=== PATIENT | male | born 1995 | race Caucasian/White ===

== ENCOUNTER 2016-11-09 00:46 | Emergency (ER) | payer OTHER ==
[2016-11-09 00:54] VITALS: BP 122/79; PULSE 86; TEMP 99.2; BMI 29.1
[2016-11-09] MEDS ORDERED: AMOXICILLIN 500 MG CAPSULE (FP) PO ONE (00:57)
[2016-11-09] MEDS ORDERED: ACETAMINOPHEN 325 MG TABLET (FP) PO ONE (01:01)
--- NOTE | 2016-11-09 01:01 | PDOC ---
History of Present Illness - General Chief Complaint: Sore Throat Stated Complaint: SORE THROAT Time Seen by Provider: 11/09/16 00:52 History Source: Patient Exam Limitations: No Limitations - History of Present Illness Initial Comments: 11/09/16 00:58 This is a 21-year-old male who comes in complaining of intermittent sore throats times several months. Patient said that this evening yesterday he developed a sore throat on the right side with some associated low-grade fevers. Patient denies any other complaints. Patient denies any rash or headache. Patient denies any ear pain, cough congestion or any other upper respiratory tract symptoms. PAST MEDICAL HISTORY: no significant history PAST SURGICAL HISTORY: no significant history FAMILY HISTORY: no pertinant history SOCIAL HISTORY: Pt lives with family and is employed. MEDICATIONS: reviewed ALLERGIES: As per nursing notes Review of Systems General: No fevers or chills, no weakness, no weight loss HEENT: No change in vision. No sore throat,. No ear pain CardioVascular: No chest pain or shortness of breath Respiratory:No cough, or wheezing. Gastrointestinal: no nausea, vomitting, diarrhea or constipation, No rectal bleeding Genitourinary: No dysuria, hematuria, or frequency Musculoskeletal: No joint or muscle pain or swelling Neurologic: No headache, vertigo, dizziness or loss of consciousness Psychiatric: nor depression Skin: No rashes or easy bruising Endocrine: no increased thirst or abnormal weight change Allergic: no skin or latex allergy All other systems reviewed and normal GENERAL: The patient is awake, alert, and fully oriented, in no acute distress. HEAD: Normal with no signs of trauma. THROAT: Tonsils are enlarged bilateral left tonsil is more enlarged than right with erythema and exudate. There is also a right-sided submandibular lymphadenopathy. EYES: Pupils equal, round and reactive to light, extraocular movements intact, sclera anicteric, conjunctiva clear. EXTREMITIES: Normal range of motion, no edema. NEUROLOGICAL: Normal speech, normal gait. PSYCH: Normal mood, normal affect. SKIN: Warm, Dry, normal turgor, no rashes or lesions noted. Assessment and plan: This is a 21-year-old male with low-grade fever, exudative pharyngitis and lymphadenopathy. Patient meets criteria for strep pharyngitis and was started on amoxicillin for presumptive strep pharyngitis. Patient was told to follow-up with his ENT doctor Past History - Past Medical History Allergies/Adverse Reactions: Allergies Allergy/AdvReac Type Severity Reaction Status Date / Time No Known Allergies Allergy Verified 04/06/16 02:05 Home Medications: Ambulatory Orders Ibuprofen 800 mg PO TID #30 tablet 04/06/16 Metoclopramide HCl [Reglan -] 10 mg PO TID #30 tablet 04/06/16 Amoxicillin - [Amoxicillin 500mg Capsule -] 500 mg PO BID #20 capsule 11/09/16 Suicide Attempt (Hx): No - Immunization History Immunization Up to Date: Yes - Psycho/Social/Smoking Cessation Hx Anxiety: No Suicidal Ideation: No Smoking Status: No Smoking History: Never smoked Have you smoked in the past 12 months: No Number of Cigarettes Smoked Daily: 0 Information on smoking cessation initiated: No Hx Alcohol Use: No Drug/Substance Use Hx: No Substance Use Type: None *Physical Exam - Vital Signs Last Vital Signs Temp Pulse Resp BP Pulse Ox 99.2 F 86 14 122/79 98 11/09/16 00:51 11/09/16 00:51 11/09/16 00:51 11/09/16 00:51 11/09/16 00:51 *DC/Admit/Observation/Transfer Diagnosis at time of Disposition: Acute streptococcal pharyngitis - Discharge Dispostion Disposition: HOME Condition at time of disposition: Good Admit: No - Patient Instructions Additional Instructions: Take amoxicillin 1 tablet twice a day for 10 days x-ray to take the full 10 days worth. Tylenol or Motrin as needed for pain. Follow-up with an ENT doctor next week Return to the emergency department immediately with ANY new, persistent or worsening symptoms. Continue any medications as previously prescribed by your physician. You should follow up with your primary doctor as soon as possible regarding today's emergency department visit. . Please make sure your doctor reviews the results of your emergency evaluation. Thank you for coming to the Emergency Department today for your care. It was a pleasure to see you today. Please note that your evaluation is INCOMPLETE until you follow-up with your doctor.
[2016-11-09] MEDS ORDERED: ACETAMINOPHEN 325 MG TABLET (FP) ONE (01:03)
[2016-11-09] MEDS ORDERED: AMOXICILLIN 250 MG CAPSULE ONE (01:03)
== END 2016-11-09 01:06 | disposition home or self-care (01) ==
LOC: FER 00:46
DX: J02.0 Streptococcal pharyngitis (principal)
CPT/HCPCS: 99282-25

== ENCOUNTER 2016-12-04 09:46 | Emergency (ER) | payer OTHER ==
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
[2016-12-04] MEDS ORDERED: IBUPROFEN 600 MG TABLET (FP) PO ONE ×2 (09:53→10:21)
[2016-12-04 10:02] VITALS: BP 128/72; PULSE 78; TEMP 98.1; BMI 28.5
== END 2016-12-04 11:25 | disposition home or self-care (01) ==
LOC: FER 09:46
DX: M79.602 Pain in left arm (principal); V23.4XXA Motorcycle driver injured in collision with car, pick-up truck or van in traffic accident, initial encounter; Y93.89 Activity, other specified; Y92.410 Unspecified street and highway as the place of occurrence of the external cause
CPT/HCPCS: 73030-TC-LT; 73030-TC-RT; 99282-25

== ENCOUNTER 2017-01-19 22:00 | Emergency (ER) | payer OTHER ==
[2017-01-19 22:34] VITALS: BP 120/86; PULSE 84; TEMP 98.8; BMI 29.8
[2017-01-19] MEDS ORDERED: IBUPROFEN 400 MG TABLET (FP) PO ONE ×2 (22:58→23:04)
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
== END 2017-01-20 01:31 | disposition home or self-care (01) ==
LOC: FER 22:00
DX: S02.80XA Fracture of other specified skull and facial bones, unspecified side, initial encounter for closed fracture (principal); W21.07XA Struck by softball, initial encounter; Y93.64 Activity, baseball; Y92.320 Baseball field as the place of occurrence of the external cause
CPT/HCPCS: 70486-TC; 99282-25

== ENCOUNTER 2020-01-06 00:50 | Emergency (ER) | payer OTHER ==
[2020-01-06 01:35] VITALS: BP 128/88; PULSE 99; TEMP 98.2; BMI 31.1
== END 2020-01-06 01:35 | disposition home or self-care (01) ==
LOC: MERGE 00:50 → FER 00:50
DX: S82.892A Other fracture of left lower leg, initial encounter for closed fracture (principal); Y99.8 Other external cause status
CPT/HCPCS: 99282-25

== ENCOUNTER 2020-01-23 01:34 | Emergency (ER) | payer OTHER ==
[2020-01-23 02:04] VITALS: BP 118/85; PULSE 86; TEMP 98.1; BMI 25.8
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
--- NOTE | 2020-01-23 02:23 | PDOC ---
Attending Attestation - Resident Resident Name: Angela Bautista - ED Attending Attestation I have performed the following: I have examined & evaluated the patient, The case was reviewed & discussed with the resident, I agree w/resident's findings & plan, Exceptions are as noted - HPI HPI: 01/23/20 03:17 See resident HPI - Physicial Exam PE: 01/23/20 05:04 Agree with documented exam - Medical Decision Making 01/23/20 03:18 L ankle fx, cast applied 01/08, re-eval by ortho scheduled in 5 days. Pt is concerned because he got the cast wet and the proximal and distal ends feel m obile No px, no numbness Ankle still completely immobilized DC pt f/u with ortho in 5 days as scheduled pt instructed in reasons for early and emergent re-eval Discharge - Discharge Information Problems reviewed: Yes Clinical Impression/Diagnosis: History of fracture of left ankle Condition: Stable Disposition: HOME - Follow up/Referral - Patient Discharge Instructions Patient Printed Discharge Instructions: How to Take Care of Your Cast Additional Instructions: You came into the ER with concerns about your L leg cast. We did a physical exam. As discussed, please make sure to follow up with your orthopedic surgeon. Come back to the ER immediately with any new or worsening concerns. Thank you for coming to the [facility] ER We hope you feel better soon! - Post Discharge Activity
== END 2020-01-23 04:45 | disposition home or self-care (01) ==
LOC: JER 01:34 → MERGE 01:34 → JER 04:45
DX: S82.92XA Unspecified fracture of left lower leg, initial encounter for closed fracture (principal)
CPT/HCPCS: 99283-25

== ENCOUNTER 2020-08-08 17:23 | Emergency (ER) | payer OTHER | END 2020-08-08 17:54 | disposition home or self-care (01) | LOC: JVIRT 17:23 | DX: U07.1 COVID-19 (principal) | CPT/HCPCS: C9803; G2012-GT; U0003 ==

== ENCOUNTER 2020-11-20 23:49 | Emergency (ER) | payer OTHER ==
[2020-11-21 00:04] VITALS: BP 131/78; PULSE 78; TEMP 98.1; BMI 28.0
[2020-11-21] MEDS ORDERED: FAMOTIDINE 20 MG/50 ML IVPB 20 MG/50 ML MG IVPB ONE ×2 (00:55→01:10)
[2020-11-21] MEDS ORDERED: MAG HYDROX/AL HYDROX/SIMETH 30 ML UNIT-DOSE CUP PO ONE (00:55)
[2020-11-21] MEDS ORDERED: METOCLOPRAMIDE HCL INJECTION 10 MG/2 ML VIAL IVPUSH ONE (00:56)
[2020-11-21] MEDS ORDERED: MAG HYDROX/AL HYDROX/SIMETH 30 ML UNIT-DOSE CUP ONE (01:10)
[2020-11-21] MEDS ORDERED: METOCLOPRAMIDE HCL INJECTION 10 MG/2 ML VIAL ONE (01:10)
[2020-11-21 01:39] LABS: BASO % 0.6 % (0-2.0); EOS % 1.5 % (0-4.5); HEMOGLOBIN 12.9 GM/dL (11.7-16.9); LYMPH % 28.8 % (8-40); MCH 24.3 pg (25.7-33.7); MEAN CELL VOLUME 73.7 fl (80-96); MEAN PLT VOLUME 8.4 fl (7.5-11.1); MONO % 8.5 % (3.8-10.2); NEUT % 60.6 % (42.8-82.8); PLATELET COUNT 273 K/MM3 (134-434); RBC 5.29 M/mm3 (4.00-5.60); RDW 16.5 % (11.9-15.9); WHITE BLOOD COUNT 7.8 K/mm3 (4.0-10.0)
[2020-11-21 01:54] LABS: BLOOD UREA NITROGEN 17.2 mg/dL (7-18); CALCIUM 8.9 mg/dL (8.5-10.1)
[2020-11-21 01:57] LABS: CREATININE 0.9 mg/dL (0.55-1.3)
[2020-11-21 01:59] LABS: BILIRUBIN,TOTAL 0.3 mg/dL (0.2-1); TOT PROT 7.6 g/dl (6.4-8.2)
== END 2020-11-21 02:22 | disposition home or self-care (01) ==
LOC: JER 23:49
PROC: 3E033GC Introduction of Other Therapeutic Substance into Peripheral Vein, Percutaneous Approach (ICD-10-PCS; principal; 2020-11-20)
PROC: 3E033GC Introduction of Other Therapeutic Substance into Peripheral Vein, Percutaneous Approach (ICD-10-PCS; 2020-11-20)
DX: R10.13 Epigastric pain (principal); K92.1 Melena; K92.0 Hematemesis
CPT/HCPCS: 36415; 80053; 83690; 85025; 99284-25

== ENCOUNTER 2022-05-06 23:35 | Emergency (ER) | payer OTHER ==
[2022-05-06 23:47] VITALS: BP 116/85; PULSE 85; RESP 16; TEMP 98.2; BMI 31.1
[2022-05-07] MEDS ORDERED: ACETAMINOPHEN 500 MG TABLET (FP) PO ONE (00:12)
[2022-05-07] MEDS ORDERED: MAG HYDROX/AL HYDROX/SIMETH 30 ML UNIT-DOSE CUP PO ONE (00:12)
[2022-05-07] MEDS ORDERED: MAG HYDROX/AL HYDROX/SIMETH 30 ML UNIT-DOSE CUP ONE (00:19)
[2022-05-07] MEDS ORDERED: ACETAMINOPHEN 500 MG TABLET (FP) ONE (00:19)
== END 2022-05-07 00:29 | disposition home or self-care (01) ==
LOC: FER 23:35
DX: R10.13 Epigastric pain (principal)
CPT/HCPCS: 93005; 93010; 99283-25

== ENCOUNTER 2022-10-27 21:13 | Emergency (ER) | payer OTHER ==
[2022-10-27 21:22] VITALS: BP 113/78; PULSE 96; RESP 16; TEMP 98.6; BMI 31.8
== END 2022-10-27 21:30 | disposition home or self-care (01) ==
LOC: FER 21:13
DX: S30.1XXA Contusion of abdominal wall, initial encounter (principal); W01.0XXA Fall on same level from slipping, tripping and stumbling without subsequent striking against object, initial encounter; Y93.67 Activity, basketball
CPT/HCPCS: 99282-25

== ENCOUNTER 2022-12-08 10:00 | Emergency (ER) | payer OTHER ==
[2022-12-08 10:16] VITALS: BP 130/87; PULSE 92; RESP 18; TEMP 98.8; BMI 31.1
== END 2022-12-08 11:09 | disposition home or self-care (01) ==
LOC: FER 10:00
DX: H69.92 Unspecified Eustachian tube disorder, left ear (principal); H92.02 Otalgia, left ear; R07.0 Pain in throat; H83.3X9 Noise effects on inner ear, unspecified ear
CPT/HCPCS: 99283-25

== ENCOUNTER 2024-02-04 13:28 | Emergency (ER) | payer OTHER ==
[2024-02-04 14:13] VITALS: BP 121/78; PULSE 64; RESP 15; TEMP 97.9; BMI 29.8
== END 2024-02-04 15:16 | disposition home or self-care (01) ==
LOC: FER 13:28
DX: R11.2 Nausea with vomiting, unspecified (principal)
CPT/HCPCS: 99283-25

== ENCOUNTER 2025-03-25 12:28 | Emergency (ER) | payer OTHER ==
[2025-03-25 12:39] VITALS: BP 126/84; PULSE 73; RESP 18; TEMP 98.2; BMI 29.8
== END 2025-03-25 12:51 | disposition home or self-care (01) ==
LOC: FER 12:28
DX: R11.2 Nausea with vomiting, unspecified (principal)
CPT/HCPCS: 99283-25